=== PATIENT | female | born 1970 | race Two or more races ===

== ENCOUNTER 2018-03-22 09:38 | Emergency (ER) | payer SELFPAY ==
[~2018-03-22] VITALS: Ht 157.5 cm; Wt 78.9 kg
[2018-03-22 09:47] VITALS: Ht 157.5 cm; Wt 78.9 kg
[2018-03-22 12:11] VITALS: BP 147/78
== END 2018-03-22 12:11 | disposition home or self-care (01) ==
LOC: ED 09:38
DX: G51.0 Bell's palsy (principal); R73.03 Prediabetes
CPT/HCPCS: J2930; J7040